=== PATIENT | female | born 1965 | race Hispanic/Latino ===

== ENCOUNTER 2017-08-16 08:53 | Outpatient (CLI) | payer BC | END 2017-08-16 08:54 | disposition home or self-care (01) | LOC: BICMAMMO 08:53 | PROVIDERS: ATTEND Nurse Practitioner Women's Health | DX: N63.10 Unspecified lump in the right breast, unspecified quadrant (principal) | CPT/HCPCS: 77066; G0279 ==

== ENCOUNTER → 2017-08-23 | Day surgery (SDC) | payer BC | LOC: BICULT 12:35 | PROVIDERS: ATTEND Nurse Practitioner Women's Health | PROC: 0HBU3ZX Excision of Left Breast, Percutaneous Approach, Diagnostic (ICD-10-PCS; principal; 2017-08-23) | DX: N60.11 Diffuse cystic mastopathy of right breast (principal) | CPT/HCPCS: 19083; 88305 ==

== ENCOUNTER 2018-02-22 07:41 | Outpatient (CLI) | payer BC ==
--- NOTE | 2018-02-22 08:21 | ULT ---
LIMITED RIGHT BREAST ULTRASOUND: Date: 02-22-18 Provided Clinical History: Follow up right breast mass. FINDINGS: Correlation is made with the diagnostic ultrasound of 08-16-17. The previously biopsied 11 o'clock righ t breast lesion is again demonstrated. This measures about 1.2 x 1.1 cm in greatest dimensions, which is decreased in size with respect to the prior examination. This is compatible with the benign histo logy results demonstrated on prior biopsy. IMPRESSION: BIRADS category 2 - benign findings. Patient is due for bilateral mammograms in 6 months. POS: OFF
== END 2018-02-22 07:42 | disposition home or self-care (01) ==
LOC: BICULT 07:41
PROVIDERS: ATTEND Nurse Practitioner Women's Health
DX: N63.10 Unspecified lump in the right breast, unspecified quadrant (principal)

== ENCOUNTER 2018-06-13 07:04 | Outpatient (CLI) | payer BC ==
--- NOTE | 2018-06-13 08:10 | ULT ---
BILATERAL RENAL ULTRASOUND: Date: 06/13/18 HISTORY: Renal cyst. FINDINGS: Real-time imaging of the right and left kidneys were performed. The right kidney measures 10.2 cm and the left kidney measures 10.9 cm in size. There are no signs of obstruction. There is a slightly obl emmanuel shaped 4.5 x 6.5 cm cyst with thin internal septation involving the mid pole region of the left k idney. The bladder region showed an almost empty bladder at the time of this exam. IMPRESSION: 4.5 x 6.5 cm cyst with thin internal septation involving the left kidney. POS: KYUNG
== END 2018-06-13 07:05 | disposition home or self-care (01) ==
LOC: BICULT 07:04
PROVIDERS: ATTEND Internal Medicine
DX: N28.1 Cyst of kidney, acquired (principal); Q63.3 Hyperplastic and giant kidney
CPT/HCPCS: 76770

== ENCOUNTER 2018-07-25 08:05 | Outpatient (CLI) | payer OTHER ==
--- NOTE | 2018-07-25 09:10 | CT ---
Exam: Abdomen CT scan with and without IV contrast: HISTORY: Kidney cyst, follow-up COMPARISON: 06/13/2018 ultrasound, CT, 12/20/2009 FINDINGS: The lung bases are clear. The liver, gallbladder, pancreas, spleen, adrenal glands are unremarkable. 4.6 x 6.3 cm upper pole left renal cyst. This has increased in size from 12/20/2009. No renal calculus or evidence for obstruction. Small fat-containing umbilical hernia. No adenopathy, absces s, or abnormal fluid collection. IMPRESSION: Left renal cyst showing some increase in size from 2009.
== END 2018-07-25 08:06 | disposition home or self-care (01) ==
LOC: CT 08:05
PROVIDERS: ATTEND Urology
DX: N28.1 Cyst of kidney, acquired (principal)
CPT/HCPCS: 74170

== ENCOUNTER 2019-04-07 13:50 | Outpatient (CLI) | payer BC, OTHER ==
[~2019-04-07 13:50] MED LIST: Iopamidol 370 76% 100 ML VIAL ONE
--- NOTE | 2019-04-07 15:48 | CT ---
CT NECK WITH CONTRAST: Indications: Enlarged lymph nodes. Palpable mass left neck. Area of concern marked with marker. Comparison: CT neck, 10-31-11. On that exam there was a nonspecific adenopathy, more prominent on the left at that time. FINDINGS: Carotid glands, submandibular glands, and thyroid appear unremarkable. The nasopharynx is unremarkable. Oral cavity is obscured by spray artifact from dental appliances. Sublingual region and oropharynx ap pear unremarkable. Hypopharynx appears unremarkable and unchanged from the prior exam. Small air collection anteriorly o n the left at the level of the hyoid, consistent with a small balanocele. Corner Bead Operator space unremarkable. Parapharyngeal space and retropharyngeal space unremarkable. Paranasal sinuses are clear. There is abnormal cystic density surrounding the roots of what appears to be the second mandibular mo lar on the left. Periapical absess is a consideration. No extension from the mandible identified. Review of lymph nodes shows mild nonspecific level I lymph node. A small level I lymph node on the ri ght in the submandibular region measures up to 1 cm. This is a stable lymph node from 2012. There is a level II lymph node on the left lateral to the vascular bundle measuring 1.5 cm in the axi al plane. This lymph node measures 2.2 cm craniocaudal in the coronal plane. Previously this lymph no de also measured approximately 2.2 cm craniocaudal. There is a 1.2 cm level II lymph node on the right along the lateral vascular bungle which is unchang ed from the prior exam from 2012. There are nonspecific level IIB lymph nodes seen posterior to the vascular bundle bilaterally. The la rgest is on the left measuring approximately 1 cm. This is stable from prior study. Tiny level III lymph nodes. No significant level IV or V nodes identified. IMPRESSION: 1. Nonspecific cervical chain adenopathy, slightly more pronounced on the left. This adenopathy appea rs stable from prior exam of 2012. 2. There is lucency surrounding the roots of what appears to be second mandibular molar on left. Cons ider dental consultation. POS: KYUNG
== END 2019-04-07 13:51 | disposition home or self-care (01) ==
LOC: BICCT 13:50
PROVIDERS: ATTEND Internal Medicine
DX: R59.9 Enlarged lymph nodes, unspecified (principal)
CPT/HCPCS: 70491; Q9967

== ENCOUNTER 2019-08-18 13:31 | Outpatient (CLI) | payer BC, OTHER ==
--- NOTE | 2019-08-18 15:42 | MMO ---
Bilateral MAMMO Bilat Diag [facility]. CLINICAL HISTORY: Patient is 54 years old and is seen for diagnostic exam and lump or thickening in the upper region of both breasts. The patient has the following family history of breast cancer: aunt, malignant (generic). The patient has no personal history of cancer. The patient has a history of right Ultrasound Guided Core Biopsy in 2018 - benign. VIEWS: The views performed were: bilateral craniocaudal with tomosynthesis; bilateral mediolateral with tomosynthesis; bilateral mediolateral oblique with tomosynthesis; left mediolateral oblique spot compression with tomosynthesis; and left craniocaudal spot compression with tomosynthesis. FILMS COMPARED: The present examination has been compared to prior imaging studies performed at [facility] on 08/16/2018 and 08/18/2019. This study has been interpreted with the assistance of computer-aided detection. MAMMOGRAM FINDINGS: The breasts are heterogeneously dense, which could obscure a lesion on mammography. There are benign appearing calcifications seen in both breasts. There are no suspicious masses, suspicious calcifications, or new areas of architectural distortion. IMPRESSION: THERE IS NO MAMMOGRAPHIC EVIDENCE OF MALIGNANCY. A ROUTINE FOLLOW-UP MAMMOGRAM IN 1 YEAR IS RECOMMENDED. THE RESULTS OF THIS EXAM WERE SENT TO THE PATIENT. ACR BI-RADS Category 2 - Benign finding MAMMOGRAPHY NOTE: 1. A negative mammogram report should not delay a biopsy if a dominant of clinically suspicious mass is present. 2. Approximately 10% to 15% of breast cancers are not detected by mammography. 3. Adenosis and dense breasts may obscure an underlying neoplasm. Reported by: DANNY YOUNG MD Electonically Signed: [id number]
--- NOTE | 2019-08-18 17:34 | ULT ---
LEFT BREAST ULTRASOUND: 08/18/19 HISTORY: Palpable abnormality at doctor's office at approximately the 10-11 o'clock position left breast. COMPARISON: Prior mammogram studies as well as a previous left breast ultrasound. Real time imaging of the area of concern shows normal breast tissue. No suspicious masses. IMPRESSION: BIRADS 2: Benign Finding(s) Routine annual screening mammography (for women over age 40). POS: FAHRAN
== END 2019-08-18 13:32 | disposition home or self-care (01) ==
LOC: BICMAMMO 13:31
PROVIDERS: ATTEND Nurse Practitioner Women's Health
DX: N63.20 Unspecified lump in the left breast, unspecified quadrant (principal); N63.11 Unspecified lump in the right breast, upper outer quadrant
CPT/HCPCS: 36415; 77066; 80053; 80061; 82306; 82607; 82746; 83540; 84439; 84443; 85025; G0279

== ENCOUNTER 2019-08-19 13:15 | Outpatient (CLI) | payer BC ==
--- NOTE | 2019-08-19 13:39 | ULT ---
EXAM: US Breast Limited Rt PROVIDED CLINICAL HISTORY: Right breast mass COMPARISON: 08/16/2018, 02/22/2018 FINDINGS: Limited sonographic interrogation of the right breast in the 11:00 position 6 cm from the nipple rede monstrates a hypoechoic mass previously biopsied and shown to represent a fibroadenoma. The measurements of this mass are smaller than on prior studies. IMPRESSION: Redemonstration of previously biopsied right breast mass. This appears smaller than on prior studies. BI-RADS 2 -- benign findings
== END 2019-08-19 13:16 | disposition home or self-care (01) ==
LOC: BICULT 13:15
PROVIDERS: ATTEND Nurse Practitioner Women's Health
DX: N63.11 Unspecified lump in the right breast, upper outer quadrant (principal); N63.22 Unspecified lump in the left breast, upper inner quadrant

== ENCOUNTER 2019-10-13 07:03 | Outpatient (CLI) | payer BC, OTHER ==
--- NOTE | 2019-10-13 08:58 | ULT ---
BILATERAL RENAL ULTRASOUND COMPLETE: HISTORY: Followup renal cyst. FINDINGS: The right kidney measures 11.2 x 5.9 x 4.2 cm. The left kidney measures 12.0 x 5.0 x 5.4 cm. The bl adder appears unremarkable. Minimally septated left renal cyst measuring 5.0 x 7.6 x 4.9 cm. No kya al hydronephrosis. No perinephric process. IMPRESSION: Left renal cyst which measures slightly larger than on the prior exam, 06/13/2018. Otherwise, stable e xam. POS: OFF
== END 2019-10-13 07:04 | disposition home or self-care (01) ==
LOC: BICULT 07:03
PROVIDERS: ATTEND Urology
DX: N28.1 Cyst of kidney, acquired (principal)
CPT/HCPCS: 76770

== ENCOUNTER 2020-07-27 12:14 | Outpatient (CLI) | payer OTHER ==
[~2020-07-27 12:14] MED LIST changes: -Iopamidol 370 76% 100 ML VIAL ONE; +Magnevist 469MG/ML 20 ML VIAL ONE
== END 2020-07-27 12:15 | disposition home or self-care (01) ==
LOC: BICMRI 12:14
PROVIDERS: ATTEND Internal Medicine
DX: R59.0 Localized enlarged lymph nodes (principal)
CPT/HCPCS: 70543; A9579

== ENCOUNTER 2020-10-15 14:21 | Outpatient (CLI) | payer BC | END 2020-10-15 14:22 | disposition home or self-care (01) | LOC: ULT 14:21 | PROVIDERS: ATTEND Urology | DX: N28.1 Cyst of kidney, acquired (principal) | CPT/HCPCS: 76770 ==

== ENCOUNTER 2020-11-19 15:48 | Outpatient (CLI) | payer BC | END 2020-11-19 15:49 | disposition home or self-care (01) | LOC: BICMAMMO 15:48 | PROVIDERS: ATTEND Nurse Practitioner Women's Health | DX: Z12.31 Encounter for screening mammogram for malignant neoplasm of breast (principal); Z91.89 Other specified personal risk factors, not elsewhere classified; Z80.3 Family history of malignant neoplasm of breast | CPT/HCPCS: 77063; 77067 ==

== ENCOUNTER 2020-11-23 08:20 | Outpatient (CLI) | payer BC | END 2020-11-23 08:21 | disposition home or self-care (01) | LOC: BICMAMMO 08:20 | PROVIDERS: ATTEND Nurse Practitioner Women's Health | DX: N63.10 Unspecified lump in the right breast, unspecified quadrant (principal); R92.1 Mammographic calcification found on diagnostic imaging of breast | CPT/HCPCS: G0279 ==

== ENCOUNTER 2020-12-27 16:24 | Outpatient (CLI) | payer BC ==
[2020-12-27 18:19] LABS: #Eosinphils 0.1 10x3/uL (0.0-0.5); #Monocytes 0.5 10x3/uL (0.0-1.1); #Neutrophils 3.7 10x3/uL (1.5-8.4); %Basophils 0.3 % (0.0-2.0); %Eosinophils 1.9 % (0.0-6.0); %Lymphocytes 40.5 % (18.0-47.0); %Monocytes 6.8 % (0.0-10.0); %Neutrophils 50.2 % (40.0-75.0); Hemoglobin 14.4 g/dL (12.0-15.5); Mean Corpuscular Hemoglobin 31.9 pg (27.0-33.0); Mean Corpuscular Volume 96.5 fl (81.6-98.3); Mean Platelet Volume 9.5 fl (7.4-10.4); Platelet Count 287 10x3/uL (150-450); RBC Distribution Width 12.3 % (11.5-14.5); Red Blood Cell (RBC) Count 4.52 10x6/uL (3.90-5.03); White Blood Cell (WBC) Count 7.3 10x3/uL (3.5-10.5)
[2020-12-27 18:32] LABS: Anion Gap 14 mmol/L (10-20); BUN (Urea Nitrogen) 15 mg/dL (9.8-20.1); Calc. Creatinine Clearance 0 mL/min (70-130); Calcium 8.9 mg/dL (7.8-10.44); Carbon Dioxide 25 mmol/L (22-29); Chloride 106 mmol/L (98-107); Glucose 85 mg/dL (70-105); Potassium 4.2 mmol/L (3.5-5.1); Sodium 141 mmol/L (136-145)
[2020-12-28 00:58] LABS: SARS-CoV-2 PCR by NAA Not Detected (NotDetected)
== END 2020-12-27 16:25 | disposition home or self-care (01) ==
LOC: LABBT 16:24
DX: Z01.812 Encounter for preprocedural laboratory examination (principal); Z20.822 Contact with and (suspected) exposure to COVID-19
CPT/HCPCS: 80048; 85025; U0003; U0005

== ENCOUNTER 2020-12-30 08:38 | Day surgery (SDC) | payer BC ==
[2020-12-29 14:04] VITALS: BMI 30.1
[2020-12-30] MEDS ORDERED: PROPOFOL 200 MG/20 ML VIAL ONE (10:47)
[2020-12-30] MEDS ORDERED: Glycopyrrolate 0.2 MG/ML 5 ML SYRINGE ONE (10:47)
[2020-12-30] MEDS ORDERED: Dexamethasone 20 MG/5 ML VIAL ONE (10:47)
[2020-12-30] MEDS ORDERED: Ondansetron PF 4 MG/2 ML Vial ONE (10:47)
[2020-12-30] MEDS ORDERED: Lidocaine 1% PF 5 ML VIAL ONE (10:47)
== END 2020-12-30 13:35 | disposition home or self-care (01) ==
LOC: MAMMO 08:38
PROVIDERS: ATTEND Specialist
PROC: 0HBT0ZX Excision of Right Breast, Open Approach, Diagnostic (ICD-10-PCS; principal; 2020-12-30)
DX: N62 Hypertrophy of breast (principal); D24.1 Benign neoplasm of right breast; N60.81 Other benign mammary dysplasias of right breast; R92.0 Mammographic microcalcification found on diagnostic imaging of breast; Z79.899 Other long term (current) drug therapy
CPT/HCPCS: 19281; 76098; 88307; J1100; J2405; J2704

== ENCOUNTER 2021-10-18 12:22 | Outpatient (CLI) | payer BC | END 2021-10-18 12:23 | disposition home or self-care (01) | LOC: BICULT 12:22 | PROVIDERS: ATTEND Urology | DX: N28.1 Cyst of kidney, acquired (principal) | CPT/HCPCS: 76770 ==

== ENCOUNTER 2021-11-21 11:29 | Outpatient (CLI) | payer BC | END 2021-11-21 11:30 | disposition home or self-care (01) | LOC: BICMAMMO 11:29 | PROVIDERS: ATTEND Specialist | DX: Z12.31 Encounter for screening mammogram for malignant neoplasm of breast (principal); Z80.3 Family history of malignant neoplasm of breast; Z91.89 Other specified personal risk factors, not elsewhere classified | CPT/HCPCS: 77063; 77067 ==

== ENCOUNTER 2022-12-21 07:54 | Outpatient (CLI) | payer BC | END 2022-12-21 07:55 | disposition home or self-care (01) | LOC: BICMAMMO 07:54 | PROVIDERS: ATTEND Internal Medicine | DX: Z12.31 Encounter for screening mammogram for malignant neoplasm of breast (principal); Z13.820 Encounter for screening for osteoporosis; M85.89 Other specified disorders of bone density and structure, multiple sites; Z78.0 Asymptomatic menopausal state; Z80.3 Family history of malignant neoplasm of breast; Z90.11 Acquired absence of right breast and nipple; Z91.89 Other specified personal risk factors, not elsewhere classified | CPT/HCPCS: 77063; 77067; 77080 ==

== ENCOUNTER 2023-04-13 14:02 | Outpatient (CLI) | payer BC | END 2023-04-13 14:03 | disposition home or self-care (01) | LOC: BICULT 14:02 | PROVIDERS: ATTEND Urology | DX: N28.1 Cyst of kidney, acquired (principal) | CPT/HCPCS: 76770 ==

== ENCOUNTER 2024-04-18 14:02 | Outpatient (CLI) | payer BC | END 2024-04-18 14:03 | disposition home or self-care (01) | LOC: BICULT 14:02 | PROVIDERS: ATTEND Urology | DX: N28.1 Cyst of kidney, acquired (principal); N39.3 Stress incontinence (female) (male) | CPT/HCPCS: 76770 ==

== ENCOUNTER 2024-12-24 07:56 | Outpatient (CLI) | payer BC | END 2024-12-24 07:57 | disposition home or self-care (01) | LOC: BICMAMMO 07:56 | PROVIDERS: ATTEND Internal Medicine | DX: Z78.0 Asymptomatic menopausal state (principal); M85.89 Other specified disorders of bone density and structure, multiple sites | CPT/HCPCS: 77080 ==